=== PATIENT | female | born 1980 | race African-American/Black ===

== ENCOUNTER 2017-05-18 18:58 | Emergency (ER) | payer MEDICAID | END 2017-05-18 20:45 | disposition home or self-care (01) | LOC: D.ER 18:58 | DX: R51 Headache (principal); I10 Essential (primary) hypertension; G43.909 Migraine, unspecified, not intractable, without status migrainosus; R11.0 Nausea ==

== ENCOUNTER 2017-08-23 05:58 | Emergency (ER) | payer OTHER ==
[2017-08-23 06:25] LABS: BASOPHILS 0.2 % (0-2); EOSINOPHILS 2.5 % (0-7); HEMATOCRIT 40.8 % (36.0-48.0); LYMPHOCYTES 26.8 % (15-50); MCH 29.5 pg (26.0-34.0); MCHC 34.3 g/dL (31.0-37.0); MCV 86.1 fL (80.0-100.0); MEAN PLATELET VOLUME 9.7 fL (7.4-10.4); MONOCYTES 5.2 % (2-11); NEUTROPHILS 65.3 % (40-80); RBC 4.74 10x6/uL (4.00-5.40); RDW 14.1 % (11.5-14.5); WBC 5.6 10x3/uL (4.8-10.8)
[2017-08-23 06:28] LABS: PLATELET COUNT 256 10x3/uL (130-400)
[2017-08-23 06:37] LABS: HCG SERUM NEGATIVE (NEGATIVE)
[2017-08-23 06:39] LABS: ALBUMIN 4.1 g/dL (3.4-5.0); ALKALINE PHOSPHATASE 58 U/L (46-116); ALT (SGPT) 16 U/L (10-68); AMYLASE - SERUM 90 U/L (25-115); CALC OSMOLALITY 276 mosm/kg (275-300); CALCIUM 9.4 mg/dL (8.5-10.1); CARBON DIOXIDE 24.4 mmol/L (21.0-32.0); CHLORIDE - SERUM 104 mmol/L (98-107); CREATININE - SERUM 0.8 mg/dL (0.6-1.3); GLUCOSE 98 mg/dL (74-106); LIPASE 96 U/L (73-393); PROTEIN - SERUM 8.1 g/dL (6.4-8.2); SODIUM 139 mmol/L (136-145); UREA NITROGEN 10 mg/dL (7-18); eGFR NON AFRICAN AMERICAN 85 mL/min (90-120)
[2017-08-23 07:26] LABS: UDS - AMPHET NEGATIVE QUAL (NEGATIVE); UDS - BARB NEGATIVE QUAL (NEGATIVE); UDS - BENZO NEGATIVE QUAL (NEGATIVE); UDS - COCAINE NEGATIVE QUAL (NEGATIVE); UDS - OPIATE POSITIVE QUAL (NEGATIVE); UDS - PCP NEGATIVE QUAL (NEGATIVE); UDS - THC POSITIVE QUAL (NEGATIVE)
[2017-08-23 07:29] LABS: APPEARANCE SLT CLOUDY (CLEAR); BACTERIA MODERATE /hpf (NONE SEEN); BILIRUBIN NEGATIVE (NEGATIVE); COLOR DK YELLOW (YELLOW); EPITHELIAL CELLS 0-5 /hpf (0-5); GLUCOSE NEGATIVE (NEGATIVE); KETONE NEGATIVE (NEGATIVE); MUCUS >1+ /lpf (NONE SEEN); NITRITE NEGATIVE (NEGATIVE); PROTEIN NEGATIVE (NEGATIVE); SPECIFIC GRAVITY 1.025 (1.005-1.020); UROBILINOGEN NORMAL (NORMAL); WHITE CELLS - URINE 25-50 /hpf (0-5)
== END 2017-08-23 08:35 | disposition home or self-care (01) ==
LOC: D.ER 05:58
PROVIDERS: Family Medicine
DX: N39.0 Urinary tract infection, site not specified (principal); R11.10 Vomiting, unspecified; F17.200 Nicotine dependence, unspecified, uncomplicated

== ENCOUNTER 2018-09-25 17:09 | Emergency (ER) | payer MEDICAID ==
[~2018-09-25] VITALS: Ht 162.6 cm; Wt 57.3 kg
[2018-09-25 17:22] VITALS: BP 127/78; Ht 162.6 cm; Wt 57.3 kg
== END 2018-09-25 19:30 | disposition left against medical advice (07) ==
LOC: D.ER 17:09
DX: R11.0 Nausea (principal)